=== PATIENT | male | born 1945 | race Hispanic/Latino ===

== ENCOUNTER 2017-07-07 07:34 | Observation (INO) | payer MEDICARE ==
[2017-07-07] MEDS: NACL 0.9% 500 ML 500 ML IV SCH ×2 (08:41→10:55)
[2017-07-07 08:54] LABS: BUN/Creatinine Ratio 14.28; Basophils % (Auto) 0.5 % (0.0-1.8); Calcium 8.5 mg/dL (8.4-10.2); Chloride 106.4 mmol/L (98-107); Eosinophils % (Auto) 6.4 % (0.0-4.3); Hematocrit 38.7 % (35.5-45.6); Hemoglobin 13.1 gm/dl (11.8-15.2); Mean Corpuscular HGB Conc 34 % (32-34); Mean Corpuscular Hemoglobin 31 pg (28-32); Mean Corpuscular Volume 90 fl (84-94); Platelet Count 181 K/mm3 (140-440); Potassium 4.5 mmol/L (3.6-5.0); Red Blood Count 4.29 M/mm3 (3.65-5.03); Red Cell Distribution Width 14.7 % (13.2-15.2); White Blood Count 7.1 K/mm3 (4.5-11.0)
[2017-07-07 09:16] LABS: INR 1.13 (0.87-1.13)
[2017-07-07] MEDS ORDERED: VERSED ONE (11:12)
[2017-07-07] MEDS ORDERED: HEPARIN/NS 5000 UNIT/500ML(CATH LAB) 1,000 ML IR ONE (11:12)
[2017-07-07] MEDS ORDERED: XYLOCAINE 2% INFILTRATI ONE (11:13)
[2017-07-07] MEDS ORDERED: NITROGLYCERIN SYRINGE 3 ML ONE (11:13)
[2017-07-07] MEDS: HEPARIN 10,000 UNITS/10 ML ONE ×2 (11:24→11:51)
[2017-07-07] MEDS: SUBLIMAZE ONE ×2 (11:24→12:01)
[2017-07-07] MEDS ORDERED: AMBIEN PO PRN (12:26)
[2017-07-07] MEDS ORDERED: ZOFRAN IV PRN (12:26)
[2017-07-07] MEDS ORDERED: ULTRAM PO PRN (12:26)
[2017-07-07] MEDS ORDERED: PLAVIX ONE (12:29)
[2017-07-07] MEDS ORDERED: ALUM-MAG HYDROX-SIMETH 200-200-20MG/5ML ONE (12:29)
--- NOTE | 2017-07-07 12:30 | Event Note ---
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 Excellent results. Admit for post PCI 23hr observation. Discharge tomorrow on meds.
[2017-07-07] MEDS ORDERED: PROVENTIL IH PRN (12:52)
[2017-07-07] MEDS ORDERED: NACL 0.9% 1000 ML 1,000 ML IV SCH (13:00)
--- NOTE | 2017-07-07 15:43 | Cardiac Catherization Report ---
CORONARY ANGIOPLASTY REPORT REASON FOR PROCEDURE: The patient is a 72-year-old man with coronary artery disease. Two weeks ago, he underwent cardiac catheterization at another institution for unstable angina. This revealed complete occlusion of the mid LAD. The chronicity of the occlusion was uncertain, that appeared to be a total occlusion of recent onset versus a chronic total occlusion. The patient was referred for coronary intervention to the LAD. PROCEDURE: The patient was prepped and draped in a sterile fashion after informed consent. The right femoral artery was entered using Seldinger technique followed by placement of a 6-[place] sheath. We selected a number 3 left Amplatz guiding catheter and advanced to the left coronary ostium. Pre-intervention angiograms were taken. We then inserted a 0.014 inch Devil Tender 50 guidewire, into the vessel, and with some difficulty, successfully penetrating the completely occluded vessel, following which predilatation angioplasty was performed using a 3.0 mm balloon catheter. Following predilatation, serial stents were placed in the vessel. A 3.0 x 18 mm drug-eluting stent was placed across the previously occluded segment, with excellent result. Following this, we did note secondary lesions in the proximal LAD, with sequential 80% lesions that were treated using serial 3.5-4.0 mm drug-eluting stents. Following stenting of the proximal and mid LAD, there was an excellent angiographic result, 0 residual stenosis, and judaism of SEB 3 flow to a large LAD system. The procedure was well tolerated by the patient and there were no complications. CONCLUSION: 1. Successful angioplasty and stenting of the completely occluded mid LAD. 2. Successful angioplasty and stenting of secondary lesions in the proximal LAD. JOB# [id number] NOEMY/TRANG
--- NOTE | 2017-07-07 17:47 | Admit Criteria Form ---
Admission Criteria Documentation: TELEMETRY CARE Telemetry Admission Guidelines (Place 'X' for any and all applicable criteria): Admission to telemetry [A] may be indicated for ANY ONE of the following(1)(2)(3 )(4)(5): [ ]I. Cardiac disease, including ANY ONE of the following (9)(10)(11)(12)(13 ): [ ]a) Postacute PA [ ]b) Low-risk patients with ST-segment elevation PA who have undergone successful percutaneous coronary intervention [ ]c) Unstable angina [ ]d) Suspected PA (until it is ruled out) [ ]e) Post cardiac surgery (first 48 to 72 hours unless complications occur) [ ]f) Acute arrhythmias (including significant tachycardia or bradycardia) [B] [ ]g) Firing of an implantable cardioverter defibrillator [C] [ ]h) Suspected pacemaker or implantable cardioverter defibrillator malfunction (10) [ ]i) New administration or adjustment of an antiarrhythmic drug [D ] [ ]j) Child admitted for acute congestive heart failure [ ]j) Long QT syndrome [ ]k) Advanced heart block (eg, second-degree Mobitz type II, third- degree heart block) [ ]l) Acute myocarditis or pericarditis [ ]m) Short-term (ambulatory or inpatient) monitoring after a cardiac procedure as indicated by ANY ONE of the following [E]: [ ]i) Electrophysiologic studies [ ]ii) Percutaneous coronary intervention with stent placement [ ]iii) Pacemaker placement with cardiac conduction defect [ ]iv) Implantable cardiac defibrillator placement [ ]II. Drug overdose or poisoning with substance that causes arrhythmias or QT prolongation (eg, phenothiazines, sympathomimetic agents, cyclic antidepressants, digitalis, antiarrhythmic drugs)(15) [ X]III. Short-term (ambulatory or inpatient) monitoring after therapeutic or diagnostic procedure requiring conscious sedation or anesthesia (eg, endoscopy, elective cardioversion) [ ]IV. Acute cerebrovascular even[F](18) [ ]V. Massive blood transfusion (eg, at least 10 units of packed red blood cells in 24 hours) [ ]. Variceal bleeding after endoscopy, sclerotherapy, or IV vasopressin [ ]VII. Uncorrected electrolyte abnormalities associated with an increased risk of dangerous arrhythmia [G]; examples include [ ]a) Hyperkalemia with attributable ECG changes [ ]b) Potassium greater than 6.5 mmol/L (mEq/L) in a patient without history of chronic renal disease [ ]c) Prolonged QT attributed to hypokalemia, hypomagnesemia, or hypocalcemia [ ]VIII.Unexplained syncope or other neurologic event suspected of being due to arrhythmia due to a finding that increases risk; examples include(19)(20)(21): [ ]a) High-risk ECG findings (eg, bifascicular block, bradycardia, abnormal QT interval, ventricular pre- excitation) [ ]b) History of previous syncope due to arrhythmia [ ]c) Abnormal ventricular function (eg, reduced ejection fraction ) [ ]d) Exertional or supine syncope [ ]e) Concerning syncope characteristics (eg, sudden loss of consciousness without prodrome) [ ]f) Family history of sudden [ ]g) Use of arrhythmogenic medication [ ]h) Suspected cardiac ischemia [ ]i) Known channelopathy (eg, long QT syndrome, Brugada syndrome, or catecholaminergic paroxysmal ventricular tachycardia) [ ]j) Known structural heart disease (eg, hypertrophic cardiomyopathy , severe valvular disease) [ ]k) Palpitations preceding syncope The original [email or web address] content created by [email or web address] has been revised. The portions of the content which have been revised are identified through the use of italic text or in bold, and [email or web address] has neither reviewed nor approved the modified material. All other unmodified content is copyright [email or web address]. Please see references footnoted in the original [email or web address] edition 2016
[2017-07-07] MEDS: PROVENTIL IH SCH (19:51)
[2017-07-07] MEDS ORDERED: PROAIR IH SCH (22:00)
[2017-07-07] MEDS: LOPRESSOR PO SCH (22:12)
[2017-07-07] MEDS: IMDUR PO SCH (22:12)
[2017-07-07] MEDS: PEPCID PO SCH (22:16)
[2017-07-08 06:34] LABS: Basophils % (Auto) 0.2 % (0.0-1.8); Eosinophils % (Auto) 5.2 % (0.0-4.3); Hematocrit 34.8 % (35.5-45.6); Hemoglobin 11.7 gm/dl (11.8-15.2); Mean Corpuscular HGB Conc 34 % (32-34); Mean Corpuscular Hemoglobin 30 pg (28-32); Mean Corpuscular Volume 90 fl (84-94); Platelet Count 169 K/mm3 (140-440); Red Blood Count 3.86 M/mm3 (3.65-5.03); Red Cell Distribution Width 14.7 % (13.2-15.2)
[2017-07-08 06:48] LABS: Creatine Kinase MB 2.4 ng/mL (0.0-4.0)
[2017-07-08 06:52] LABS: BUN/Creatinine Ratio 14.16; Calcium 8.2 mg/dL (8.4-10.2); Chloride 106.8 mmol/L (98-107); Potassium 4.1 mmol/L (3.6-5.0)
--- NOTE | 2017-07-08 08:46 | XRay Report ---
PORTABLE CHEST INDICATION: Post PCI. COMPARISON: None similar. FINDINGS: Portable, frontal chest radiograph demonstrates mild exaggerated cardiomediastinal silhouette/possible cardiomegaly. Mildly elevated right hemidiaphragm. Mild right mid to lower lung atelectasis or scarring. Clear left lung. No pleural effusions or CHF. EKG leads. Demineralized bones with few degenerative changes. CONCLUSION: Mild cardiomegaly and right lung base volume loss, as described. Please also correlate clinically and with prior chest imaging, if available. Thank you for the opportunity to participate in this patient's care.
[2017-07-08 08:49] VITALS: BP 107/57
[2017-07-08] MEDS: PROVENTIL IH SCH (09:52)
[2017-07-08] MEDS ORDERED: PLAVIX PO SCH (10:00)
[2017-07-08] MEDS ORDERED: HALFPRIN EC PO SCH (10:00)
[2017-07-08] MEDS: PEPCID PO SCH (10:08)
[2017-07-08] MEDS: LOPRESSOR PO SCH (10:09)
[2017-07-08] MEDS: IMDUR PO SCH (10:10)
--- NOTE | 2017-07-08 11:42 | Short Stay Summary ---
Short Stay Documentation Date of service: 07/08/17 - History H&P: obtained from office - Allergies and Medications Current Medications: Allergies No Known Allergies Allergy (Unverified 07/07/17 07:34) Home Medications Medication Instructions Recorded Confirmed Last Taken Type ALBUTEROL Inhaler [ProAir HFA 2 puff INHALATION BID 07/07/17 07/07/17 07/06/17 History Inhaler] 2 puff Aspirin EC [Aspirin Enteric Coated 81 mg PO DAILY 07/07/17 07/07/17 07/07/17 08: 14 History TAB] AtorvaSTATin [Lipitor] 40 mg PO DAILY 07/07/17 07/07/17 07/06/17 History 40mg Clopidogrel [Plavix] 75 mg PO DAILY 07/07/17 07/07/17 07/07/17 08:14 History Famotidine [Pepcid] 20 mg PO BID 07/07/17 07/07/17 07/06/17 History 20mg ISOSORBIDE MONOnitrate [Imdur ER] 60 mg PO DAILY 07/07/17 07/07/17 07/06/17 History 60mg Metoprolol [Lopressor TAB] 25 mg PO DAILY 07/07/17 07/07/17 07/06/17 History 25mg Active Medications Albuterol (Proventil) 2.5 mg IH Q4HRT PRN PRN Reason: Shortness Of Breath Albuterol (Proventil) 2.5 mg IH BIDRT [facility] Last Admin: 07/08/17 09:52 Dose: 2.5 mg Aspirin (Halfprin Ec) 81 mg PO DAILY [facility] Last Admin: 07/08/17 10:09 Dose: 81 mg Atorvastatin Calcium (Lipitor) 40 mg PO DAILY [facility] Last Admin: 07/08/17 10:08 Dose: 40 mg Clopidogrel Bisulfate (Plavix) 75 mg PO DAILY [facility] Last Admin: 07/08/17 10:08 Dose: 75 mg Famotidine (Pepcid) 20 mg PO BID [facility] Last Admin: 07/08/17 10:08 Dose: 20 mg Isosorbide Mononitrate (Imdur) 60 mg PO DAILY [facility] Last Admin: 07/08/17 10:10 Dose: 60 mg Metoprolol Tartrate (Lopressor) 25 mg PO DAILY [facility] Last Admin: 07/08/17 10:09 Dose: 25 mg Ondansetron HCl (Zofran) 4 mg IV Q8H PRN PRN Reason: N/V unrelieved by Reglan Tramadol HCl (Ultram) 50 mg PO Q4H PRN PRN Reason: Pain, Mild (1-3) Zolpidem Tartrate (Ambien) 5 mg PO QHS PRN PRN Reason: Sleep - Physical exam General appearance: no acute distress HEENT: PERRLA Lungs: Clear to auscultation Heart: Regular rate - Brief post op/procedure progress note Procedure: 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 Condition: stable - Hospital course Hospital course: Stable overnight observation. - Disposition Condition at discharge: Good Disposition: [id number] TO HOME OR SELFCARE Short Stay Discharge Plan Activity: advance as tolerated Diet: low fat, low cholesterol, low salt Follow up with: COOPER FRANZ MD [Primary Care Provider] - 7 Days EDI CAREY MD [Staff Physician] - 7 Days Forms: CardCath PCI D/C Instructions Prescriptions: Clopidogrel [Plavix] 75 mg PO DAILY #30 tablet
== END 2017-07-08 14:45 | disposition home or self-care (01) ==
LOC: CATHLABREC 07:34 → 4A 12:26
PROVIDERS: ADMIT Internal Medicine Cardiovascular Disease; ATTEND Internal Medicine Cardiovascular Disease
DX: I25.10 Atherosclerotic heart disease of native coronary artery without angina pectoris (principal); I25.5 Ischemic cardiomyopathy; I12.9 Hypertensive chronic kidney disease with stage 1 through stage 4 chronic kidney disease, or unspecified chronic kidney disease; N18.3 Chronic kidney disease, stage 3 (moderate); J44.9 Chronic obstructive pulmonary disease, unspecified; N40.1 Benign prostatic hyperplasia with lower urinary tract symptoms; E78.5 Hyperlipidemia, unspecified; I21.4 Non-ST elevation (NSTEMI) myocardial infarction; R94.31 Abnormal electrocardiogram [ECG] [EKG]
CPT/HCPCS: 36415; 71010; 80048; 80061; 82550; 82553; 84484; 85025; 85347; 85610; 85730; 93005; 93010; 94640; 94760; A9270; C1725; C1769; C1874; C1887; C1894; C9600; G0378; J1644; J2250; J3010; J7030; J7040; 92928; Q9967